=== PATIENT | female | born 2000 | race African-American/Black ===

== ENCOUNTER 2024-01-18 01:22 | Emergency (ER) | payer MEDICAID ==
[~2024-01-18] VITALS: Ht 170.2 cm; Wt 105.4 kg
[2024-01-18 01:29] VITALS: BP 144/90; PULSE 83; RESP 16; TEMP 98.5; O2SAT 97
[2024-01-18] MEDS ORDERED: HYDR4CRE35 PR (01:43)
== END 2024-01-18 01:55 | disposition home or self-care (01) ==
LOC: ER 01:22
DX: L25.9 Unspecified contact dermatitis, unspecified cause (principal)

== ENCOUNTER 2024-08-29 11:29 | Emergency (ER) | payer SELFPAY ==
[~2024-08-29] VITALS: Ht 170.2 cm; Wt 109.8 kg
[~2024-08-29 11:29] MED LIST: HYDR4CRE35 PR
--- NOTE | 2024-08-29 12:01 | ED.PDOC ---
ACCESS REPRESENTATIVE HPI Comments 23 y.o female presents to the ED for a chief complaint of vaginal bleeding that started this morning. Patient reports about 12 weeks twin gestation . Patient mentioned bleeding was heavy with no blood clots or pelvic cramping reported. Patient denies any recent trauma, back pain, nausea or vomiting. She denies medical history or allergies. Chief Complaint: Vaginal Bleed Time Seen by MD: 11:53 Reviewed Notes: Nurses Notes, Medications, Allergies Allergies: Coded Allergies: NO KNOWN ALLERGIES (Unverified , 08/29/24) Home Meds Active Scripts Hydrocortisone (Rectal) (Hydrocortisone) 1 % Cre, 1 % PA BID for 5 Days, #1 CRE Prov:WILLY FIGUEROA ALLY PAC 01/18/24 Information Source: Patient Mode of Arrival: Ambulatory Timing: Hours Severity: Moderate Vaginal Discharge: None Vaginal Lesions: None Bleeding Quality: Bright Red Vaginal Mass: None Onset Of Mass/Bleeding: Spontaneous Sexual Activity: Last Consensual [place]: Unknown Control: None History of: Current Blood Type: Unknown Associated Signs and Symptoms: Vaginal Bleeding Past Medical History PAST MEDICAL HISTORY: Denies Surgical History: Denies all surgeries POWERTRAIN DESIGN ENGINEER History: No Pertinent POWERTRAIN DESIGN ENGINEER History Family History Family History: Reviewed,noncontributory to illness Social History Smoker: Non-Smoker Alcohol: Denies ETOH Use Drugs: Denies Drug Use Lives In: Home Constitutional: denies: chills, diaphoresis, fatigue, fever, malaise, sweats, weakness, others EENTM: denies: blurred vision, double vision, ear bleeding, ear discharge, ear drainage, ear pain, ear ringing, eye pain, eye redness, hearing loss, mouth pain, mouth swelling, nasal discharge, nose bleeding, nose congestion, nose pain, photophobia, tearing, throat pain, throat swelling, voice changes, others Respiratory: denies: cough, hemoptysis, orthopnea, SOB at rest, shortness of breath, SOB with excertion, stridor, wheezing, others Cardiovascular: denies: chest pain, dizzy spells, diaphoresis, Dyspnea on exertion, edema, irregular heart beat, left arm pain, lightheadedness, palpitations, PND, syncope, others Gastrointestinal: denies: abdomen distended, abdominal pain, blood streaked bowels, constipated, diarrhea, dysphagia, difficulty swallowing, hematemesis, melena, nausea, poor appetite, poor fluid intake, rectal bleeding, rectal pain, vomiting, others Genitourinary: reports: abnormal vagina bleeding, ; denies: burning, dyspareunia, dysuria, flank pain, frequency, hematuria, incontinence, pain, vagina discharge, urgency, others Neurological: denies: dizziness, fainting, headache, left sided numbness, left sided weakness, numbness, paresthesia, pre-existing deficit, right sided numbness, right sided weakness, seizure, speech problems, tingling, tremors, weakness, others Musculoskeletal: denies: back pain, gout, joint pain, joint swelling, muscle pain, muscle stiffness, neck pain, others Integumetry: denies: bruises, change in color, change in hair/nails, dryness, laceration, lesions, lumps, rash, wounds, others Allergic/Immunocompromised: denies: Difficulty Healing, Frequent Infections, Hives, Itching, others Hematologic/Lymphatic: denies: anemia, blood clots, easy bleeding, easy bruising, swollen glands, others Endocrine: denies: excessive hunger, excessive sweating, excessive thirst, excessive urination, flushing, intolerance to cold, intolerance to heat, unexplained weight gain, unexplained weight loss, others Psychiatric: denies: anxiety, bipolar disorder, depression, hopeless, panic disorder, schizophrenia, sleepless, suicidal, others All Other Systems: Reviewed and Negative Physical Exam General Appearance: No Apparent Distress HEENT: Normal ENT Inspection, Pharynx Normal, TMs Normal Neck: Full Range of Motion, Non-Tender, Normal, Normal Inspection Respiratory: Chest Non-Tender, Lungs Clear, No Accessory Muscle Use, No Respiratory Distress, Normal Breath Sounds Cardiovascular: No Edema, No JVD, No Murmur, No Gallop, Normal Peripheral Pulses, Regular Rate/Rhythm Breast Exam: Deferred Gastrointestinal: Non Tender, No Pulsatile Mass, Normal Bowel Sounds, Soft, Other (Gravid uterus) Genitalia: Deferred Pelvic: Deferred Rectal: Deferred Extremities: No calf tenderness, Normal capillary refill, Normal inspection, Normal range of motion, Non-tender, No pedal edema Musculoskeletal : Apperance: Normal Neurologic: Alert, infrastructure consultant II-XII nml as Tested, No Motor Deficits, Normal Affect, Normal Mood, No Sensory Deficits Cerebellar Function: Normal Reflexes: Normal Skin: Dry, Normal Color, Warm Lymphatic: No Adenopathy Was a procedure done? Was a procedure done?: No Differential Diagnosis (POWERTRAIN DESIGN ENGINEER) Vaginal Bleeding: - Incomplete, - Inevitable, - Missed, - Threatened, Ectopic X-Ray, Labs, Meds, VS Vital Signs Date Time Temp Pulse Resp B/P (MAP) Pulse Ox O2 Delivery O2 Flow Rate FiO2 08/29/24 12:23 73 18 120/69 (86) 98 08/29/24 12:23 73 18 98 Room Air 08/29/24 11:50 98.7 76 16 125/72 (89) 100 98.7 Lab Test 08/29/24 12:32 08/29/24 12:01 Range/Units Urine Color Colorless Yellow Urine Clarity Clear Clear Urine pH 6.5 5.0-9.0 Urine Specific [place] 1.006 1.001-1.035 Urine Protein Negative Negative Urine Ketones Negative Negative Urine Blood 1+ H Negative /uL Urine Nitrite Negative Negative Urine Bilirubin Negative Negative Urine Urobilinogen Normal Negative mg/dL Urine Leukocyte Esterase Negative Negative /uL Urine RBC 1 0 - 4 /hpf Urine Microscopic WBC 5 0-5 /HPF Urine Squamous Epithelial Cells Few <5 /hpf Urine Bacteria Few H None Seen /hpf Urine Glucose Normal Normal mg/dL White Blood Count 7.8 4.4-10.8 10^3/uL Red Blood Count 5.28 H 4.0-5.20 10^6/uL Hemoglobin 12.0 L 12.2-16.2 g/dL Hematocrit 38.1 36.0-46.0 % Mean Corpuscular Volume 72.2 L 80.0-100.0 fL Mean Corpuscular Hemoglobin 22.7 L 28.0-32.0 pg Mean Corpuscular Hemoglobin Concent 31.5 L 32.0-36.0 g/dL Red Cell Distribution Width 16.5 H 11.8-14.3 % Platelet Count 299 140-450 10^3/uL Mean Platelet Volume 7.8 6.9-10.8 fL Neutrophils (%) (Auto) 67.0 37.0-80.0 % Lymphocytes (%) (Auto) 24.8 10.0-50.0 % Monocytes (%) (Auto) 7.0 0.0-12.0 % Eosinophils (%) (Auto) 0.8 0.0-7.0 % Basophils (%) (Auto) 0.4 0.0-2.0 % Neutrophils # (Auto) 5.2 1.6-8.6 10 ^3/uL Lymphocytes # (Auto) 1.9 0.4-5.4 10 ^3/uL Monocytes # (Auto) 0.5 0-1.3 10 ^3/uL Eosinophils # (Auto) 0.1 0-0.8 10 ^3/uL Basophils # (Auto) 0 0-0.2 10 ^3/uL Nucleated Red Blood Cells 0.0 % Beta HCG, Quantitative 351963.6 H 1.5-4.2 mIU/mL CLINICAL HISTORY: bleeding Transvaginal and transabdominal grayscale sonographic imaging of the uterus and ovaries was performed, assisted by color Doppler technique. Duplex Doppler ultrasound of both ovaries was also performed. IMPRESSION: Living twin intrauterine with estimated gestational age of 8 weeks 6 days, corresponding to an NINO of 04/09/2025. At this time, the patient will be discharged and will follow up with the primary care doctor The patient will return to the emergency department's condition worsens. The urine test is negative for any infection The CBC is within normal limits The quantitative hCG is 160207 The patient will follow up with their primary care doctor Images Reviewed?: Images reviewed and evaluated by me Time of 1ST Reevaluation: 12:00 Reevaluation 1ST: Unchanged Time of 2ND Reevaluation: 14:45 Reevaluation 2ND: Improved Patient Education/Counseling: Diagnosis, Treatment, Prognosis, Need For Follow Up Family Education/Counseling: Diagnosis, Treatment, Prognosis, Need For Follow Up Departure 1 Departure Time of Disposition: 14:45 Impression: Primary Impression: Threatened Additional Impression: Vaginal abnormality in Disposition: 01 HOME / SELF CARE / HOMELESS Condition: Fair Discharged With: Self Critical Care Note Critical Care Time?: No Stability Stability form required: No I personally scribed for COOPER BEE MD ([email or web address]) on 08/29/24 at 12:01. Electronically submitted by Giovanna Escalante ([facility]). I personally scribed for COOPER BEE MD ([email or web address]) on 08/29/24 at 14:41. Electronically submitted by Giovanna Escalante ([facility]). COOPER BEE MD Aug 29, 2024 12:01
[2024-08-29 12:19] LABS: Basophils # (auto) 0 10 ^3/uL (0-0.2); Basophils % (auto) 0.4 % (0.0-2.0); Eosinophils # (auto) 0.1 10 ^3/uL (0-0.8); Eosinophils % (auto) 0.8 % (0.0-7.0); Hematocrit 38.1 % (36.0-46.0); Lymphocytes # (auto) 1.9 10 ^3/uL (0.4-5.4); Lymphocytes % (auto) 24.8 % (10.0-50.0); Mean Corpuscular Hemoglobin 22.7 pg (28.0-32.0); Mean Corpuscular Hgb Conc. 31.5 g/dL (32.0-36.0); Mean Corpuscular Volume 72.2 fL (80.0-100.0); Monocytes # (auto) 0.5 10 ^3/uL (0-1.3); Neutrophils # (auto) 5.2 10 ^3/uL (1.6-8.6); Platelet Count (auto) 299 10^3/uL (140-450); Red Blood Cells 5.28 10^6/uL (4.0-5.20); Red Cell Distribution Width 16.5 % (11.8-14.3); White Blood Cell 7.8 10^3/uL (4.4-10.8)
[2024-08-29 12:54] LABS: Urine Bacteria FEW /hpf (None Seen); Urine Blood 1+ /uL (Negative); Urine Clarity Clear (Clear); Urine Color Colorless (Yellow); Urine Protein, UAD Negative (Negative); Urine Specific Gravity 1.006 (1.001-1.035); Urine Squamous Epithelial Cell FEW /hpf (<5); Urine Urobilinogen Normal (Negative); Urine WBC 5 /HPF (0-5); Urine pH 6.5 (5.0-9.0)
--- NOTE | 2024-08-29 14:38 | DVH ---
CLINICAL HISTORY: bleeding COMPARISON:None TECHNIQUE: Transvaginal and transabdominal grayscale sonographic imaging of the uterus and ovaries wa s performed, assisted by color Doppler technique. Duplex Doppler ultrasound of both ovaries was also performed. FINDINGS: The uterus measures 11.0 x 5.8 x 5.9 cm. There is a twin , appears to be dichorion ic diamniotic. Each gestational sac demonstrates a yolk sac and pole. [place]-rump length for twi n a is 2.16 cm, corresponding to an estimated gestational age of 8 weeks 6 days. heart rate fo r twin a measures 165 beats per minute. Twin b crown-rump length measures 2.17 cm, corresponding to a n estimated gestational age of 8 weeks 6 days. heart rate for twin b measures 168 beats per min marianela. Right ovary measures 3.7 x 2.7 x 4.9 cm. Arterial and venous blood flow demonstrated. Left ovary measures 3.0 x 1.8 x 1.7 cm. Arterial and venous blood flow demonstrated. IMPRESSION: Living twin intrauterine with estimated gestational age of 8 weeks 6 days, corresponding to an NINO of 04/09/2025.
[2024-08-29 14:54] VITALS: BP 119/69; PULSE 71; RESP 17; TEMP 98.9; O2SAT 98
== END 2024-08-29 14:59 | disposition home or self-care (01) ==
LOC: ER 11:29
DX: O20.0 Threatened abortion (principal); Z79.899 Other long term (current) drug therapy
CPT/HCPCS: 36415; 76801; 76817; 81001; 84702; 85025

== ENCOUNTER → 2024-09-03 | Outpatient (CLI) | payer BC ==
[2024-09-03 11:56] LABS: Basophils # (auto) 0 10 ^3/uL (0-0.2); Basophils % (auto) 0.5 % (0.0-2.0); Eosinophils # (auto) 0.1 10 ^3/uL (0-0.8); Eosinophils % (auto) 0.7 % (0.0-7.0); Hematocrit 39.6 % (36.0-46.0); Hemoglobin 12.7 g/dL (12.2-16.2); Lymphocytes # (auto) 1.8 10 ^3/uL (0.4-5.4); Lymphocytes % (auto) 21.2 % (10.0-50.0); Mean Corpuscular Hgb Conc. 32.1 g/dL (32.0-36.0); Mean Corpuscular Volume 71.9 fL (80.0-100.0); Monocytes # (auto) 0.6 10 ^3/uL (0-1.3); Neutrophils # (auto) 5.9 10 ^3/uL (1.6-8.6); Neutrophils % (auto) 70.6 % (37.0-80.0); Nucleated Red Blood Cells % 0.1 %; Platelet Count (auto) 305 10^3/uL (140-450); Red Blood Cells 5.51 10^6/uL (4.0-5.20); Red Cell Distribution Width 16.1 % (11.8-14.3); White Blood Cell 8.4 10^3/uL (4.4-10.8)
[2024-09-03 17:03] LABS: Amphetamine Screen, Urine Neg (NEGATIVE); Barbiturate Scree,Urine Neg (NEGATIVE); Benzodiazephine Screen, Urine Neg (NEGATIVE); Cannabinoid Screen, Urine Neg (NEGATIVE); Cocaine Screen, Urine Neg (NEGATIVE); Opiate Scree,Urine Neg (NEGATIVE); Phencyclidine Screen, Urine Neg (NEGATIVE)
== END | disposition home or self-care (01) ==
LOC: LAB 11:13
DX: O23.41 Unspecified infection of urinary tract in pregnancy, first trimester (principal); Z31.430 Encounter of female for testing for genetic disease carrier status for procreative management; N39.0 Urinary tract infection, site not specified; Z20.09 Contact with and (suspected) exposure to other intestinal infectious diseases; Z3A.12 12 weeks gestation of pregnancy
CPT/HCPCS: 36415; 80307; 83036; 84144; 84702; 85025; 86256; 86703; 86762; 86780; 86850; 86900; 86901; 87086; 87340

== ENCOUNTER 2025-01-11 11:05 | Observation (INO) | payer BC ==
[2025-01-11] MEDS ORDERED: PREN-96 PO (12:30)
--- NOTE | 2025-01-12 23:01 | DVHDS2 ---
Physician Discharge Progress N Final Diagnosis: ptl 29wks Operations or Procedures: Operations or Procedures nst reactive reviwed,sono Condition on Discharge: Good Disposition: Home Discharge Instructions: Diet: Regular Activity: No Restrictions, As Tolerated Medications: na Follow Up Care: Specialist: 3d Discharge Statement: "Patient was advised to return to the ER or call 911 if any headaches, dizziness, shortness of breath, chest pain, abdominal pain, bleeding, fevers, or worsening of medical condition. Patient was counseled about treatment plan, medications, possible side effects, patientverbalized understanding. All questions were answered to the best of my ability. This discharge took greater then 30 minutes in planning, reviewing documentat ion, counseling the patient, and discussing with other team members." Visit Coding OBGYN Date of Service: Jan 11, 2025 Billing Provider: BRIANA COBURN DO GRAD INTERN Common Visit Codes: [id number] INP/OBS CARE (HIGH) GRAD INTERN Procedure Codes: 79217-74- NON-STRESS TEST BRIANA COBURN DO Jan 12, 2025 23:01
== END 2025-01-11 12:42 | disposition home or self-care (01) ==
LOC: LDRP 11:05
PROVIDERS: ADMIT Obstetrics & Gynecology; ATTEND Obstetrics & Gynecology
DX: O60.03 Preterm labor without delivery, third trimester (principal); Z3A.29 29 weeks gestation of pregnancy; Z98.890 Other specified postprocedural states
CPT/HCPCS: 59025; 94760; G0378

== ENCOUNTER 2025-01-18 06:21 | Observation (INO) | payer BC ==
[~2025-01-18 06:21] MED LIST changes: +PREN-96 PO
--- NOTE | 2025-01-18 16:04 | DVHDS2 ---
Physician Discharge Progress N Final Diagnosis: testing for Twins Operations or Procedures: Operations or Procedures 24yo IUP@30.0wks VSS NST reactive per RN FKC/PTL precautions reviewed Dr. Cleveland consulted, agrees with POC. Condition on Discharge: Stable Disposition: Home Discharge Instructions: Diet: Regular Activity: See Comment Activity comment: light duty Medications: see med list Follow Up Care: Specialist: f/i in 1wk Discharge Statement: "Patient was advised to return to the ER or call 911 if any headaches, dizziness, shortness of breath, chest pain, abdominal pain, bleeding, fevers, or worsening of medical condition. Patient was counseled about treatment plan, medications, possible side effects, patientverbalized understanding. All questions were answered to the best of my ability. This discharge took greater then 30 minutes in planning, reviewing documentation, counseling the patient, and discussing with other team members." Visit Coding OBGYN Date of Service: Jan 18, 2025 Billing Provider: GAMAL ALLEN CNM PROCESS EQUIPMENT OPERATOR Common Visit Codes: [id number] OBS CARE (HIGH) PROCESS EQUIPMENT OPERATOR Procedure Codes: 44796-40- NON-STRESS TEST GAMAL ALLEN CNM Jan 18, 2025 16:04
== END 2025-01-18 10:49 | disposition home or self-care (01) ==
LOC: LDRP 09:39 → UNDOADMOB 09:39 → LDRP 10:06 → UNDODISOB 10:49
PROVIDERS: ADMIT Obstetrics & Gynecology; ATTEND Obstetrics & Gynecology
DX: O30.003 Twin pregnancy, unspecified number of placenta and unspecified number of amniotic sacs, third trimester (principal); Z3A.30 30 weeks gestation of pregnancy; Z98.890 Other specified postprocedural states
CPT/HCPCS: 59025; 81002; G0378

== ENCOUNTER 2025-01-25 09:23 | Observation (INO) | payer BC ==
--- NOTE | 2025-01-25 14:07 | DVHDS2 ---
Physician Discharge Progress N Final Diagnosis: testing for twins Operations or Procedures: Operations or Procedures S: 24y/o IUP@ 31+ weeks GA presents for testing for twins PNC with Dr. Cleveland Denies LOF, VB, UC's, vision changes, RUQ pain, FENG O: VSS: see CPN NST reactive A: 24y/o IUP@ 31+weeks GA Twin P: D/C home consulted Dr. Cleveland, agrees with POC Follow up in one week Condition on Discharge: Stable Disposition: Home Discharge Instructions: Diet: Regular Activity: Light activity Medications: See med list Follow Up Care: Specialist: Follow up in one week Discharge Statement: "Patient was advised to return to the ER or call 911 if any headaches, dizziness, shortness of breath, chest pain, abdominal pain, bleeding, fevers, or worsening of medical condition. Patient was counseled about treatment plan, medications, possible side effects, patientverbalized understanding. All questions were answered to the best of my ability. This discharge took greater then 30 minutes in planning, reviewing documentation, counseling the patient, and discussing with other team members." Visit Coding OBGYN Date of Service: Jan 25, 2025 Billing Provider: GAMAL ALLEN CNM RESEARCH AND DEVELOPMENT SCIENTIST Common Visit Codes: [id number] OBS CARE (HIGH) RESEARCH AND DEVELOPMENT SCIENTIST Procedure Codes: 48944-91- NON-STRESS TEST GAMAL ALLEN CNM Jan 25, 2025 14:07
== END 2025-01-25 11:24 | disposition home or self-care (01) ==
LOC: UNDOADMOB 09:23 → LDRP 09:23 → UNDODISOB 11:24
PROVIDERS: ADMIT Obstetrics & Gynecology; ATTEND Obstetrics & Gynecology
DX: O30.003 Twin pregnancy, unspecified number of placenta and unspecified number of amniotic sacs, third trimester (principal); Z3A.31 31 weeks gestation of pregnancy; Z98.890 Other specified postprocedural states
CPT/HCPCS: 59025; 81002; 94760; G0378

== ENCOUNTER 2025-02-01 02:34 | Observation (INO) | payer BC ==
--- NOTE | 2025-02-01 13:30 | DVHDS2 ---
Physician Discharge Progress N Final Diagnosis: testing for twins Operations or Procedures: Operations or Procedures 24yo IUP@32.0wks, denies UTI s/sx VSS NST reactive and BPP 8/8 for twin A and B UA and urine culture ordered. FKC/PTL precautions reviewed. Dr. [place] consulted, agrees with POC. Condition on Discharge: Stable Disposition: Home Discharge Instructions: Diet: Regular Activity: No Restrictions, As Tolerated Medications: see med list Follow Up Care: Specialist: f/u in 1wk Discharge Statement: "Patient was advised to return to the ER or call 911 if any headaches, dizziness, shortness of breath, chest pain, abdominal pain, bleeding, fevers, or worsening of medical condition. Patient was counseled about treatment plan, medications, possible side effects, patientverbalized understanding. All questions were answered to the best of my ability. This discharge took greater then 30 minutes in planning, reviewing documentation, counseling the patient, and discussing with other team members." Visit Coding OBGYN Date of Service: Feb 01, 2025 Billing Provider: GAMAL ALLEN CNM INTERRELATED SPECIAL EDUCATION TEACHER Common Visit Codes: [id number] OBS CARE (HIGH) INTERRELATED SPECIAL EDUCATION TEACHER Procedure Codes: 55275-37- NON-STRESS TEST GAMAL ALLEN CNM Feb 01, 2025 13:30
--- NOTE | 2025-02-01 13:50 | DVH ---
BIOPHYSICAL PROFILE HISTORY: twins Comparison Study: US OB TRANS VAGINAL US on DOS: 08/29/24, US OB ULTRASOUND COMP LESS 14WKS on DOS: TECHNIQUE: Multiple real-time grayscale sonographic images through the gravid uterus of the fetus wi th duplex Doppler color flow and M-mode spectral analysis FINDINGS: Twin A: BIOPHYSICAL PROFILE: breathing score: 2 movement score: 2 tone score: 2 Quantitative SELWYN score: 2 (MVP: 5.2 Cm.) Total score: 8 The cervix is not visualized Single live fetus in cephalic presentation. heart rate 148 beats per minute. Grade 1, anterior placenta without previa or abruption Twin B: Twin A: BIOPHYSICAL PROFILE: breathing score: 2 movement score: 2 tone score: 2 Quantitative SELWYN score: 2 (MVP: 5.7 Cm.) Total score: 8 The cervix is not visualized Single live fetus in cephalic presentation. heart rate 138 beats per minute. Grade 1, anterior placenta without previa or abruption IMPRESSION: Biophysical profile score: 8/8 for both twin a and twin B
[2025-02-01 14:22] LABS: Urine Protein, UAD Negative (Negative)
== END 2025-02-01 13:50 | disposition home or self-care (01) ==
LOC: LDRP 10:55
PROVIDERS: ADMIT Obstetrics & Gynecology; ATTEND Obstetrics & Gynecology
DX: O09.33 Supervision of pregnancy with insufficient antenatal care, third trimester (principal); O30.003 Twin pregnancy, unspecified number of placenta and unspecified number of amniotic sacs, third trimester; Z3A.32 32 weeks gestation of pregnancy; Z98.890 Other specified postprocedural states; Z79.899 Other long term (current) drug therapy
CPT/HCPCS: 76818; 81001; 81002; 87086; 94760; G0378; 59025; 76819

== ENCOUNTER 2025-02-03 11:20 | Observation (INO) | payer BC ==
--- NOTE | 2025-02-03 13:23 | DVH ---
BIOPHYSICAL PROFILE HISTORY: Twins with contractions TECHNIQUE: Multiple transabdominal real-time grayscale sonographic images through the gravid uterus of the fetus with duplex Doppler color flow and M-mode spectral analysis FINDINGS: TWIN A: BIOPHYSICAL PROFILE: breathing score: 2 movement score: 2 tone score: 2 Quantitative SELWYN score: 2 (MVP: 5.3 Cm.) Total score: 8 The cervix not well visualized. Single live fetus in cephalic presentation. heart rate 157 beats per minute. Anterior placenta without previa or abruption TWIN B: TWIN A: BIOPHYSICAL PROFILE: breathing score: 2 movement score: 2 tone score: 2 Quantitative SELWYN score: 2 (MVP: 7 Cm.) Total score: 8 The cervix not well visualized. Single live fetus in cephalic presentation. heart rate 148 beats per minute. Anterior placenta without previa or abruption IMPRESSION: Biophysical profile score TWIN A AND B : 8
--- NOTE | 2025-02-04 13:12 | DVHDS2 ---
Physician Discharge Progress N Final Diagnosis: twins [facility] wks [facility] Operations or Procedures: Operations or Procedures nst reactive reviwed,sono Condition on Discharge: Good Disposition: Home Discharge Instructions: Diet: Regular Activity: Light activity Follow Up/Referral: [facility]/BPP on February 10 at 12:00 pm Medications: na Follow Up Care: Specialist: 1w Discharge Statement: "Patient was advised to return to the ER or call 911 if any headaches, dizziness, shortness of breath, chest pain, abdominal pain, bleeding, fevers, or worsening of medical condition. Patient was counseled about treatment plan, medications, possible side effects, patientverbalized understanding. All questions were answered to the best of my ability. This discharge took greater then 30 minutes in planning, reviewing documentation, counseling the patient, and discussing with other team members." Visit Coding OBGYN Date of Service: Feb 03, 2025 Billing Provider: BRIANA COBURN DO HUNTING GUIDE Common Visit Codes: [id number] OBS CARE (HIGH) HUNTING GUIDE Procedure Codes: 02375-33- NON-STRESS TEST BRIANA COBURN DO Feb 04, 2025 13:12
== END 2025-02-03 13:50 | disposition home or self-care (01) ==
LOC: LDRP 11:20
PROVIDERS: ADMIT Obstetrics & Gynecology; ATTEND Obstetrics & Gynecology
DX: O30.003 Twin pregnancy, unspecified number of placenta and unspecified number of amniotic sacs, third trimester (principal); Z3A.32 32 weeks gestation of pregnancy; Z98.890 Other specified postprocedural states
CPT/HCPCS: 76818; 81002; 94760; G0378; 59025; 76819

== ENCOUNTER 2025-02-08 06:48 | Observation (INO) | payer BC ==
[2025-02-08 12:12] LABS: Hematocrit 31.3 % (36.0-46.0); Hemoglobin 9.7 g/dL (12.2-16.2); Mean Corpuscular Hemoglobin 22.1 pg (28.0-32.0); Mean Corpuscular Volume 71.4 fL (80.0-100.0); Nucleated Red Blood Cells % 0.2 %
[2025-02-08 12:21] LABS: INR 0.94 (0.9-1.15); Partial Thromboplastin Time 26.7 SEC (24.5-34.5); Prothrombin Time 10.0 sec (9.3-11.8)
[2025-02-08 12:24] LABS: Albumin 3.8 g/dL (3.2-4.8); Alkaline Phosphatase 114 U/L (46-116); Anion Gap 10 (5-15); Bilirubin, Total 0.3 mg/dL (0.2-1.0); Calcium 9.0 mg/dL (8.7-10.4); Carbon Dioxide 23 mmol/L (20-31); Chloride 104 mmol/L (98-107); Potassium 4.0 mmol/L (3.5-5.1); Sodium 137 mmol/L (136-145); Total Protein 7.0 g/dL (5.7-8.2); Uric Acid 5.0 mg/dL (3.1-7.8)
[2025-02-08 12:25] LABS: Alanine Aminotransferase < 9 U/L (7-40); BUN/Creatinine Ratio 7.1 (10.0-20.0); Blood Urea Nitrogen < 5 mg/dL (9-23); Glucose 72 mg/dL (74-106)
[2025-02-08 12:39] LABS: Urine Protein, UAD Negative (Negative)
[2025-02-08 12:45] LABS: Protein, Urine 9.8 mg/dL (1-14)
--- NOTE | 2025-02-08 12:53 | DVH ---
BIOPHYSICAL PROFILE HISTORY: Twins/PIH TECHNIQUE: Multiple transabdominal real-time grayscale sonographic images through the gravid uterus of the fetus with duplex Doppler color flow and M-mode spectral analysis FINDINGS: TWIN A: BIOPHYSICAL PROFILE: breathing score: 2 movement score: 2 tone score: 2 Quantitative SELWYN score: 2 (MVP: 6.0 Cm.) Total score: 8 The cervix not well visualized. TWIN A fetus in cephalic presentation. heart rate 149 beats per minute. Anterior placenta without previa or abruption TWIN B: BIOPHYSICAL PROFILE: breathing score: 2 movement score: 2 tone score: 2 Quantitative SELWYN score: 2 (MVP: 5.2 Cm.) Total score: 8 The cervix not well visualized. TWIN A fetus in cephalic presentation. heart rate 139 beats per minute. Anterior placenta without previa or abruption IMPRESSION: Biophysical profile score: 8/8 for TWIN A AND TWINB
--- NOTE | 2025-02-08 13:06 | DVHDS2 ---
Physician Discharge Progress N Final Diagnosis: twins 33wks pih check-pih ruled out Operations or Procedures: Operations or Procedures nst reactive reviwed,sono,labs Condition on Discharge: Good Disposition: Home Discharge Instructions: Diet: Regular Activity: No Restrictions, As Tolerated Medications: na Follow Up Care: Specialist: 1w Discharge Statement: "Patient was advised to return to the ER or call 911 if any headaches, dizziness, shortness of breath, chest pain, abdominal pain, bleeding, fevers, or worsening of medical condition. Patient was counseled about treatment plan, medications, possible side effects, patientverbalized understanding. All questions were answered to the best of my ability. This discharge took greater then 30 minutes in planning, reviewing documentation, counseling the patient, and discussing with other team members." Visit Coding OBGYN Date of Service: Feb 08, 2025 Billing Provider: BRIANA COBURN DO MATERIAL ANALYST Common Visit Codes: [id number] OBS CARE (HIGH) MATERIAL ANALYST Procedure Codes: 03194-07- NON-STRESS TEST BRIANA COBURN DO Feb 08, 2025 13:06
== END 2025-02-08 13:15 | disposition home or self-care (01) ==
LOC: LDRP 10:52 → UNDOADMOB 10:52 → LDRP 11:08
PROVIDERS: ADMIT Obstetrics & Gynecology; ATTEND Obstetrics & Gynecology
DX: O30.003 Twin pregnancy, unspecified number of placenta and unspecified number of amniotic sacs, third trimester (principal); Z3A.33 33 weeks gestation of pregnancy; Z98.890 Other specified postprocedural states; Z86.2 Personal history of diseases of the blood and blood-forming organs and certain disorders involving the immune mechanism
CPT/HCPCS: 36415; 76818; 80053; 81001; 81002; 82570; 84156; 84550; 85025; 85610; 85730; 94760; G0378; 59025; 76819

== ENCOUNTER 2025-02-15 11:33 | Observation (INO) | payer BC ==
--- NOTE | 2025-02-15 13:43 | DVH ---
BIOPHYSICAL PROFILE HISTORY: Twins Comparison Study: US BIOPHYSICAL PROFILE on DOS: 02/08/25, US BIOPHYSICAL PROFILE on DOS: 02/03/25, US BIOPHYSICAL PROFILE on DOS: 02/01/25, US OB ULTRASOUND COMP LESS 14WKS on DOS: 08/29/24 TECHNIQUE: Multiple real-time grayscale sonographic images through the gravid uterus of the fetus wi th duplex Doppler color flow and M-mode spectral analysis FINDINGS: BIOPHYSICAL PROFILE: TWIN A: breathing score: 2 movement score: 2 tone score: 2 Quantitative SELWYN score: 2 (SELWYN MVP: 6.1 Cm.) Total score: 8 The cervix is not visualized Single live fetus in cephalic presentation. heart rate 146 beats per minute. Grade 2, anterior placenta without previa or abruption TWIN B: breathing score: 2 movement score: 2 tone score: 2 Quantitative SELWYN score: 2 (SELWYN MVP: 4.9 Cm.) Total score: 8 The cervix is not visualized Single live fetus in cephalic presentation. heart rate 134 beats per minute. Grade 2, anterior placenta without previa or abruption IMPRESSION: Biophysical profile score: 8/8 from Twin A and Twin B
--- NOTE | 2025-02-15 17:49 | DVHDS2 ---
Physician Discharge Progress N Final Diagnosis: testing for twins Operations or Procedures: Operations or Procedures 24yo IUP@34.6wks VSS Twin A: NST reactive per RN Twin B: NST reactive per RN FKC/PTL/PreE precautions reviewed Dr. [place] consulted, agrees with POC. Other Interventions Other Interventions [place] [address] Ph: [phone] DIAGNOSTIC IMAGING Diagnostic Imaging Report : [id number] Signed PATIENT: GIANNI SALGADO ACCT: [id number] UNIT: [id number] : 2000 LOC: [facility] ROOM / BED: TRIAGE2 / A AGE / SEX: 24 / F ADM STATUS: ADM IN SERVICE 37 ORDERING PHYSICIAN: GAMAL ALLEN CNM PROCEDURE(s): BPP - BIOPHYSICAL PROFILE REASON: Twins ORDER NUMBER(s): [id number], ACCESSION NUMBER(s): [id number] BIOPHYSICAL PROFILE HISTORY: Twins Comparison Study: US BIOPHYSICAL PROFILE on DOS: 02/08/25, US BIOPHYSICAL PROFILE on DOS: 02/03/25, US BIOPHYSICAL PROFILE on DOS: 02/01/25, US OB ULTRASOUND COMP LESS 14WKS on DOS: 08/29/24 TECHNIQUE: Multiple real-time grayscale sonographic images through the gravid uterus of the fetus with duplex Doppler color flow and M-mode spectral analysis FINDINGS: BIOPHYSICAL PROFILE: TWIN A: breathing score: 2 movement score: 2 tone score: 2 Quantitative SELWYN score: 2 (SELWYN MVP: 6.1 Cm.) Total score: 8 The cervix is not visualized Single live fetus in cephalic presentation. heart rate 146 beats per minute. Grade 2, anterior placenta without previa or abruption TWIN B: breathing score: 2 movement score: 2 tone score: 2 Quantitative SELWYN score: 2 (SELWYN MVP: 4.9 Cm.) Total score: 8 The cervix is not visualized Single live fetus in cephalic presentation. heart rate 134 beats per minute. Grade 2, anterior placenta without previa or abruption IMPRESSION: Biophysical profile score: 8/8 from Twin A and Twin B ATED BY: KWABENA FOLEY MD DICTATED DATE/TIME: 02/15/251340 SIGNED BY: KWABENA FOLEY MD SIGNED DATE/TIME: 02/15/251340 CC: Condition on Discharge: Stable Disposition: Home Discharge Instructions: Diet: Regular Activity: No Restrictions, As Tolerated Follow Up/Referral: Follow up Friday at 11:00 am for NST[facility]BPP [facility] Medications: see med list Follow Up Care: Specialist: f/u in 1wk Discharge Statement: "Patient was advised to return to the ER or call 911 if any headaches, dizziness, shortness of breath, chest pain, abdominal pain, bleeding, fevers, or worsening of medical condition. Patient was counseled about treatment plan, medications, possible side effects, patientverbalized understanding. All questions were answered to the best of my ability. This discharge took greater then 30 minutes in planning, reviewing documentation, counseling the patient, and discussing with other team members." Visit Coding OBGYN Date of Service: Feb 15, 2025 Billing Provider: GAMAL ALLEN CNM DIRECTOR OF ELEMENTARY EDUCATION Common Visit Codes: [id number] OBS CARE (HIGH) DIRECTOR OF ELEMENTARY EDUCATION Procedure Codes: 23129-61- NON-STRESS TEST GAMAL ALLEN CNM Feb 15, 2025 17:49
== END 2025-02-15 13:40 | disposition home or self-care (01) ==
LOC: LDRP 11:33
PROVIDERS: ADMIT Obstetrics & Gynecology; ATTEND Obstetrics & Gynecology
DX: O30.003 Twin pregnancy, unspecified number of placenta and unspecified number of amniotic sacs, third trimester (principal); Z3A.34 34 weeks gestation of pregnancy; Z98.890 Other specified postprocedural states
CPT/HCPCS: 76818; 81002; 94760; G0378; 59025; 76819

== ENCOUNTER 2025-03-01 11:05 | Observation (INO) | payer BC ==
[~2025-03-01] VITALS: Ht 170.2 cm; Wt 122.5 kg
[2025-03-01 13:05] LABS: Urine Protein, UAD TRACE (Negative)
[2025-03-01] MEDS: BETAMETHASONE ACET (30mg/5ml) 5ml Vial 6mg/ml IM ONE (14:42)
--- NOTE | 2025-03-01 14:56 | DVH ---
INDICATION: R/O Kidney infection TECHNIQUE: Multiple real-time sonographic images of the kidneys and bladder were obtained. COMPARISON: None FINDINGS: The right kidney measures 11 cm in length, which is normal in size. There is normal echogenicity of the right kidney. Mild hydronephrosis. The left kidney measures 12 cm in length, which is normal in size. There is normal echogenicity of the left kidney. Mild hydronephrosis. No large intraluminal masses are seen in the bladder. Prior to voiding the bladder volume measures volume 45 cc. Following voiding, the bladder volume residual measures 0 cc. IMPRESSION: Mild bilateral hydronephrosis which can be seen in the setting . L CERDA
--- NOTE | 2025-03-01 14:58 | DVH ---
BIOPHYSICAL PROFILE HISTORY: Twins TECHNIQUE: Multiple transabdominal real-time grayscale sonographic images through the gravid uterus of the fetus with duplex Doppler color flow and M-mode spectral analysis FINDINGS: TWIN A: BIOPHYSICAL PROFILE: breathing score: 2 movement score: 2 tone score: 2 Quantitative SELWYN score: 2 (MVP: 5.2 Cm.) Total score: 8 The cervix not well visualized. Single live fetus in phalanx presentation. heart rate 148 beats per minute. Grade 2 Anterior placenta without previa or abruption TWIN B: BIOPHYSICAL PROFILE: breathing score: 2 movement score: 2 tone score: 2 Quantitative SELWYN score: 2 (MVP 6.2 Cm.) Total score: 8 The cervix [ not well visualized. ] Single live fetus in cephalic presentation. heart rate 144 beats per minute. Grade 2 anterior placenta without previa or abruption IMPRESSION: TWIN A: Biophysical profile score: 8 TWIN B: Biophysical profile score: 8 L CERDA
--- NOTE | 2025-03-01 17:36 | DVHDS2 ---
Physician Discharge Progress N Final Diagnosis: testing for twins/GDM, A1 Operations or Procedures: Operations or Procedures 24yo IUP@36.0wks, pt showed up for testing today. Pt is non- complaint and has no showed to multiple /GDM education/ appts. Pt reports coming from Dr. Arana's office were imaging was suboptimal due to severe back pain and inability to move side to side. Pt denies UTI s/sx today, did have GBS in urine 1 month ago that was treated. Denies UCs/LOF/VB/FENG/vision changes/RUQ pain. Endorses +FM for twin A and B. No CVA tenderness bilaterally per RN VSS, normotensive, afebrile, see CPN NST reactive for twin A and B urine C+S ordered First dose of Betamethasone IM given, Dr. Cleveland ordered per Dr. Arana's recommendation, f/u in 1 day for second dose FKC/PTL/PreE precautions reviewed Dr. Cleveland consulted, agrees with POC. Laboratory Tests Test 03/01/25 11:10 03/01/25 13:53 03/01/25 13:55 Range/Units Urine Color Light-yellow Yellow Urine Clarity Clear Clear Urine pH 6.5 5.0-9.0 Urine Specific [place] 1.014 1.001-1.035 Urine Protein Trace H Negative Urine Ketones 3+ H Negative Urine Blood Negative Negative /uL Urine Nitrite Negative Negative Urine Bilirubin Negative Negative Urine Urobilinogen Normal Negative mg/dL Urine Leukocyte Esterase 3+ Negative /uL Urine RBC 2 0 - 4 /hpf Urine Microscopic WBC 17 H 0-5 /HPF Urine Squamous Epithelial Cells Few <5 /hpf Urine Bacteria Few H None Seen /hpf Urine Glucose Normal Normal mg/dL Hemoglobin A1c 5.4 <5.7 % A1C POC Glucose 73 70-106 mg/dl Other Interventions Other Interventions [facility] [id number] [place] [address] Ph: [phone] DIAGNOSTIC IMAGING Diagnostic Imaging Report : [id number] Signed PATIENT: GIANNI SALGADO ACCT: [id number] UNIT: [id number] : 2000 LOC: [facility] ROOM / BED: [facility] / A AGE / SEX: 24 / F ADM STATUS: ADM IN SERVICE 1115 ORDERING PHYSICIAN: GAMAL ALLEN CNM PROCEDURE(s): BPP - BIOPHYSICAL PROFILE REASON: Twins ORDER NUMBER(s): [id number], ACCESSION NUMBER(s): [id number] BIOPHYSICAL PROFILE HISTORY: Twins TECHNIQUE: Multiple transabdominal real-time grayscale sonographic images through the gravid uterus of the fetus with duplex Doppler color flow and M-mode spectral analysis FINDINGS: TWIN A: BIOPHYSICAL PROFILE: breathing score: 2 movement score: 2 tone score: 2 Quantitative SELWYN score: 2 (MVP: 5.2 Cm.) Total score: 8 The cervix not well visualized. Single live fetus in phalanx presentation. heart rate 148 beats per minute. Grade 2 Anterior placenta without previa or abruption TWIN B: BIOPHYSICAL PROFILE: breathing score: 2 movement score: 2 tone score: 2 Quantitative SELWYN score: 2 (MVP 6.2 Cm.) Total score: 8 The cervix [ not well visualized. ] Single live fetus in cephalic presentation. heart rate 144 beats per m inute. Grade 2 anterior placenta without previa or abruption IMPRESSION: TWIN A: Biophysical profile score: 8 TWIN B: Biophysical profile score: 8 CRANE DRIVER DICTATED BY: ASHLEY PEREZ MD DICTATED DATE/TIME: 03/01/25 4446 SIGNED BY: ASHLEY PEREZ MD SIGNED DATE/TIME: 03/01/25 8736 CC: Consultations: Consultations [place] [address] Ph: [phone] DIAGNOSTIC IMAGING Diagnostic Imaging Report : [id number] Signed PATIENT: GIANNI SALGADO ACCT: [id number] UNIT: [id number] : 2000 LOC: [facility] ROOM / BED: [address] A AGE / SEX: 24 / F ADM STATUS: ADM IN SERVICE 1206 ORDERING PHYSICIAN: GAMAL ALLEN CNM PROCEDURE(s): KIDUS - KIDNEY REASON: R/O Kidney infection ORDER NUMBER(s): [id number], ACCESSION NUMBER(s): [id number] INDICATION: R/O Kidney infection TECHNIQUE: Multiple real-time sonographic images of the kidneys and bladder were obtained. COMPARISON: None FINDINGS: The right kidney measures 11 cm in length, which is normal in size. There is normal echogenicity of the right kidney. Mild hydronephrosis. The left kidney measures 12 cm in length, which is normal in size. There is normal echogenicity of the left kidney. Mild hydronephrosis. No large intraluminal masses are seen in the bladder. Prior to voiding the bladder volume measures volume 45 cc. Following voiding, the bladder volume residual measures 0 cc. IMPRESSION: Mild bilateral hydronephrosis which can be seen in the setting . CRANE DRIVER DICTATED BY: ASHLEY PEREZ MD DICTATED DATE/TIME: 03/01/25 0404 SIGNED BY: ASHLEY PEREZ MD SIGNED DATE/TIME: 03/01/25 1456 CC: Condition on Discharge: Stable Disposition: Home Discharge Instructions: Diet: Consistent carbohydrate Activity: No Restrictions, As Tolerated Medications: see med list Follow Up Care: Specialist: f/u in 1 day for second dose of betamethasone Discharge Statement: "Patient was advised to return to the ER or call 911 if any headaches, dizziness, shortness of breath, chest pain, abdominal pain, bleeding, fevers, or worsening of medical condition. Patient was counseled about treatment plan, medications, possible side effects, patientverbalized understanding. All questions were answered to the best of my ability. This discharge took greater then 30 minutes in planning, reviewing documentation, counseling the patient, and discussing with other team members." Visit Coding OBGYN Date of Service: Mar 01, 2025 Billing Provider: GAMAL ALLEN CNM INTERNATIONAL MARKETING MANAGER Common Visit Codes: 57693-IAJWKXB OBS CARE (HIGH) INTERNATIONAL MARKETING MANAGER Procedure Codes: 46162-81- NON-STRESS TEST GAMAL ALLEN CNM Mar 01, 2025 17:36
== END 2025-03-01 15:15 | disposition home or self-care (01) ==
LOC: LDRP 11:05
PROVIDERS: ADMIT Obstetrics & Gynecology; ATTEND Obstetrics & Gynecology
DX: O24.419 Gestational diabetes mellitus in pregnancy, unspecified control (principal); Z3A.36 36 weeks gestation of pregnancy; Z98.890 Other specified postprocedural states; Z79.899 Other long term (current) drug therapy
CPT/HCPCS: 36415; 76775; 76818; 81001; 81002; 82948; 82962; 83036; 87086; 94760; 96372; G0378; J0702; 59025; 76819; 87088; 87186

== ENCOUNTER 2025-03-02 08:57 | Observation (INO) | payer BC ==
[~2025-03-02] VITALS: Ht 200.7 cm; Wt 108.9 kg
[2025-03-02] MEDS: BETAMETHASONE ACET (30mg/5ml) 5ml Vial 6mg/ml IM ONE (16:28)
--- NOTE | 2025-03-04 12:48 | DVHDS2 ---
Physician Discharge Progress N Final Diagnosis: twins 36wks Operations or Procedures: Operations or Procedures nst reactive reviwed,sono Condition on Discharge: Good Disposition: Home Discharge Instructions: Diet: Regular, Consistent carbohydrate Activity: No Restrictions, As Tolerated Medications: na Follow Up Care: Specialist: 2d Discharge Statement: "Patient was advised to return to the ER or call 911 if any headaches, dizziness, shortness of breath, chest pain, abdominal pain, bleeding, fevers, or worsening of medical condition. Patient was counseled about treatment plan, medications, possible side effects, patientverbalized understanding. All questions were answered to the best of my ability. This discharge took greater then 30 minutes in planning, reviewing documentation, counseling the patient, and discussing with other team members." Visit Coding OBGYN Date of Service: Mar 02, 2025 Billing Provider: BRIANA COBURN DO COMPREHENSIVE OPHTHALMOLOGIST Common Visit Codes: 39262-YKGNVQL INP/OBS CARE (HIGH) COMPREHENSIVE OPHTHALMOLOGIST Procedure Codes: 14815-86- NON-STRESS TEST BRIANA COBURN DO Mar 04, 2025 12:48
== END 2025-03-02 17:07 | disposition home or self-care (01) ==
LOC: LDRP 15:38 → UNDOADMOB 15:38 → LDRP 15:44
PROVIDERS: ADMIT Obstetrics & Gynecology; ATTEND Obstetrics & Gynecology
DX: O24.419 Gestational diabetes mellitus in pregnancy, unspecified control (principal); Z3A.36 36 weeks gestation of pregnancy; Z98.890 Other specified postprocedural states
CPT/HCPCS: 59025; 81002; 82948; 82962; 94760; 96372; G0378; J0702

== ENCOUNTER 2025-03-06 10:44 | Observation (INO) | payer BC ==
--- NOTE | 2025-03-06 13:58 | DVH ---
CLINICAL HISTORY: Twin . Gestational diabetes. COMPARISON: US BIOPHYSICAL PROFILE on DOS: 03/01/25, US BIOPHYSICAL PROFILE on DOS: 02/15/25, US BIOP HYSICAL PROFILE on DOS: 02/08/25 TECHNIQUE: biophysical profile was performed. Transabdominal sonographic images of the fetus we re obtained. FINDINGS: Twin A: The fetus is in cephalic position. heart rate measures 155 BPM. Amniotic fluid MVP measures 4.5 cm. The placenta is anterior in position without evidence of previa or abruption. Grade 2 placenta. BPP profile is an overall score of 8/8, with 2/2 points for breathing, with at least one episode of breathing over a 30 second duration during a 30 minute observation, 2/2 points for m ovements, with 3 or more discrete body or limb movements, 2/2 points for tone, with one or more episodes of extremity extension with return to flexion, or opening and closing of hand, and 2/ 2 points for amniotic fluid, with at least 1 pocket of amniotic fluid that measures 2 cm in 2 perpend icular planes. Twin B: The fetus is in cephalic position. heart rate measures 134 BPM. Amniotic fluid MVP measures 4.1 cm. The placenta is anterior in position without evidence of previa or abruption. Grade 2 placenta. BPP profile is an overall score of 8/8, with 2/2 points for breathing, with at least one episode of breathing over a 30 second duration during a 30 minute observation, 2/2 points for m ovements, with 3 or more discrete body or limb movements, 2/2 points for tone, with one or more episodes of extremity extension with return to flexion, or opening and closing of hand, and 2/ 2 points for amniotic fluid, with at least 1 pocket of amniotic fluid that measures 2 cm in 2 perpend icular planes. IMPRESSION: BPP score of 8/8 for both twins.
--- NOTE | 2025-03-06 15:56 | DVHDS2 ---
Physician Discharge Progress N Final Diagnosis: Twin gestation Secondary Diagnosis: GDMA1 Operations or Procedures: Operations or Procedures NST/BPP SELWYN SONO reviewed PATIENT: GIANNI SALGADO ACCT: [id number] UNIT: [id number] : 2000 LOC: [facility] ROOM / BED: TRIAGE3 / A AGE / SEX: 24 / F ADM STATUS: ADM IN SERVICE 1117 ORDERING PHYSICIAN: LENKA EUCEDA DO PROCEDURE(s): BPP - BIOPHYSICAL PROFILE REASON: twins, GDMA1 ORDER NUMBER(s): [id number], ACCESSION NUMBER(s): [id number] CLINICAL HISTORY: Twin . Gestational diabetes. COMPARISON: US BIOPHYSICAL PROFILE on DOS: 03/01/25, US BIOPHYSICAL PROFILE on DOS: 02/15/25, US BIOPHYSICAL PROFILE on DOS: 02/08/25 TECHNIQUE: biophysical profile was performed. Transabdominal sonographic images of the fetus were obtained. FINDINGS: Twin A: The fetus is in cephalic position. heart rate measures 155 BPM. Amniotic fluid MVP measures 4.5 cm. The placenta is anterior in position without evidence of previa or abruption. Grade 2 placenta. BPP profile is an overall score of 8/8, with 2/2 points for breathing, with at least one episode of breathing over a 30 second duration during a 30 minute observation, 2/2 points for movements, with 3 or more discrete body or limb movements, 2/2 points for tone, with one or more episodes of extremity extension with return to flexion, or opening and closing of hand, and 2/2 points for amniotic fluid, with at least 1 pocket of amniotic fluid that measures 2 cm in 2 perpendicular planes. Twin B: The fetus is in cephalic position. heart rate measures 134 BPM. Amniotic fluid MVP measures 4.1 cm. The placenta is anterior in position without evidence of previa or abruption. Grade 2 placenta. BPP profile is an overall score of 8/8, with 2/2 points for breathing, with at least one episode of breathing over a 30 second duration during a 30 minute observation, 2/2 points for movements, with 3 or more discrete body or limb movements, 2/2 points for tone, with one or more episodes of extremity extension with return to flexion, or opening and closing of hand, and 2/2 points for amniotic fluid, with at least 1 pocket of amniotic fluid that measures 2 cm in 2 perpendicular planes. IMPRESSION: BPP score of 8/8 for both twins. Commentary: Commentary NST reactive x 2 Condition on Discharge: Stable Disposition: Home Discharge Instructions: Diet: Consistent carbohydrate Activity: No Restrictions, As Tolerated Medications: NA Follow Up Care: Discharge Statement: "Patient was advised to return to the ER or call 911 if any headaches, dizziness, shortness of breath, chest pain, abdominal pain, bleeding, fevers, or worsening of medical condition. Patient was counseled about treatment plan, medications, possible side effects, patientverbalized understanding. All questions were answered to the best of my ability. This discharge took greater then 30 minutes in planning, reviewing documentation, counseling the patient, and discussing with other team members." Visit Coding OBGYN Date of Service: Mar 06, 2025 Billing Provider: LENKA EUCEDA DO CAR USHER Common Visit Codes: 89999-XXF/OBS SAME DATE (HIGH) CAR USHER Procedure Codes: 84912-82- NON-STRESS TEST LENKA EUCEDA DO Mar 06, 2025 15:56
== END 2025-03-06 14:17 | disposition home or self-care (01) ==
LOC: LDRP 10:44
PROVIDERS: ADMIT Obstetrics & Gynecology; ATTEND Obstetrics & Gynecology
DX: O30.003 Twin pregnancy, unspecified number of placenta and unspecified number of amniotic sacs, third trimester (principal); O24.419 Gestational diabetes mellitus in pregnancy, unspecified control; Z3A.36 36 weeks gestation of pregnancy; Z98.890 Other specified postprocedural states
CPT/HCPCS: 76818; 81002; 82948; 82962; G0378; 59025; 76819

== ENCOUNTER 2025-03-08 10:20 | Inpatient (IN) | payer BC ==
[~2025-03-08] VITALS: Ht 170.2 cm; Wt 124.7 kg
[2025-03-08 11:12] LABS: Hematocrit 29.3 % (36.0-46.0); Hemoglobin 9.3 g/dL (12.2-16.2); Mean Corpuscular Hemoglobin 21.5 pg (28.0-32.0); Mean Corpuscular Volume 68.2 fL (80.0-100.0); Nucleated Red Blood Cells % 0.1 %
[2025-03-08 11:20] LABS: Albumin 3.5 g/dL (3.2-4.8); Anion Gap 9 (5-15); Bilirubin, Total 0.3 mg/dL (0.2-1.0); Calcium 8.8 mg/dL (8.7-10.4); Carbon Dioxide 22 mmol/L (20-31); Chloride 106 mmol/L (98-107); Glucose 103 mg/dL (74-106); Potassium 3.6 mmol/L (3.5-5.1); Sodium 137 mmol/L (136-145); Total Protein 6.7 g/dL (5.7-8.2)
[2025-03-08 11:22] LABS: Alanine Aminotransferase < 9 U/L (7-40); Alkaline Phosphatase 175 U/L (46-116); BUN/Creatinine Ratio 6.9 (10.0-20.0); Blood Urea Nitrogen < 5 mg/dL (9-23)
--- NOTE | 2025-03-08 11:22 | DVHHP2 ---
OB CC & HPI Date Date of Admission: Mar 08, 2025 Patient Identification: : 1 Para: 0 EDC: Mar 29, 2025 EGA: 37wks Chief Complaints: Reason for admission: other (twins ) Indication for : malpresentation Admission Nurse Assessment Rev: No History of Present Complaints pt is admitted for pcs due to twins and malpresentation,she has gdma2 and hx of ptl.pt has been noncompliant with gdm Past Medical History Cardiac: No pertinent Hx Pulmonary: No pertinent Hx Central Nervous System: No pertinent Hx GI: No pertinent Hx Hemotology/Oncology: No pertinent Hx Hepatobiliary: No pertinent Hx Psychiatric: No pertinent Hx Musculoskeletal: No pertinent Hx Rheumotologic: No pertinent Hx Infectious Disease: No peritnent Hx ENT: No pertinent Hx Renal/: No pertinent Hx Endocrine: No pertinent Hx Dermatology: No pertinent Hx Past Surgical History: No pertinent Hx OB History OB History Care: Good Care Ultrasounds: Normal mid trimester US Obstetrical Complications: Gestational Diabetes Medical Complications: None Allergies: Coded Allergies: NO KNOWN ALLERGIES (Unverified , 08/29/24) Home Meds Active Scripts Hydrocortisone (Rectal) (Hydrocortisone) 1 % Cre, 1 % GA BID for 5 Days, #1 CRE Prov:WILLY FIGUEROA PAC 01/18/24 Reported Medications Vit W/ Ferrous Fumara ( One Daily) Daily Tab, 1 TAB PO DAILY, #90 TAB 3 Refills 01/11/25 Current Medications Current Medications Medications (Trade) Dose Ordered Sig/Adela Route PRN Reason Start Time Stop Time Status Last Admin Lactated Ringer's 1,000 ml @ 125 mls/hr Q8H IV 03/08/25 10:30 Family & Social History Family/Social History Blood Type: Unknown Rubella: unknown RPR/VDRL: Negative GBS Status: Unknown HBsAG: Negative Review of Systems Constitutional: No symptom reported Ears, Nose, & Throat: No symptom reported Eyes: No symptom reported Pulmonary/Respiratory: No symptom reported Cardiovascular: No symptom reported Gastrointestinal: No symptom reported Genitourinary: No symptom reported Musculoskeletal: No symptom reported Skin: No symptom reported Psychiatric: No symptom reported Endocrine: No symptom reported Hemotologic/Lymphatic: No symptom reported OB Admission Exam Physical Exam HEENT: TMs Normal, Fontanelles Normal, Nasal Mucosa Normal, Eyes non-injected, Oropharynx Normal, PERRLA, Moist Membranes, EOMI Heart: Rhythm Normal Lungs: Clear Abdomen: Non tender Extremities: Normal Reflexes: Normal Cervical Dilatation: 1cm Effacement: 25% Station: -2 Membranes: Intact Heart Rate: 130's Accelerations: Accelerations Present Decelerations: No Decelerations Short Term Variability: Present Anesthesia Director Variability: Average (6-25) Contractions on Admission: >10 Minutes Apart Intensity: Moderate OB Plan Plan Admitting Diagnosis: Primary C- Section for twins malpresengtation gdma2 non compliant morbid obesity Plan: Section Other Plan: informed consent obtained Visit Coding OBGYN Date of Service: Mar 08, 2025 Billing Provider: BRIANA COBURN DO CONTRACTS INTERN Common Visit Codes: [id number] OBS CARE (HIGH) CONTRACTS INTERN Procedure Codes: 42545-56- NON-STRESS TEST BRIANA COBURN DO Mar 08, 2025 11:22
[2025-03-08 11:28] LABS: INR 0.92 (0.9-1.15); Partial Thromboplastin Time 29.0 SEC (24.5-34.5); Prothrombin Time 9.8 sec (9.3-11.8)
[2025-03-08] MEDS: LACTATED RINGER'S 1,000 ML IV ONE (13:04)
[2025-03-08] MEDS: ceFAZolin 2 GM/D5W50ml 50 ML IV ONE (14:54)
[2025-03-08] MEDS ORDERED: MORPHINE SULF PF 5 MG/10 ML VIAL ONE (14:55)
[2025-03-08] MEDS ORDERED: fentaNYL CITRATE 100 MCG/2 ML VL ONE (14:55)
[2025-03-08] MEDS ORDERED: GLYCOPYRROLATE 0.2 MG/ML 1ML VIAL ONE (14:56)
[2025-03-08] MEDS ORDERED: KETOROLAC TROMETH 30 MG/ML 1ML VIAL ONE (14:56)
[2025-03-08] MEDS ORDERED: ONDANSETRON HCL 4 MG/2 ML VIAL ONE (14:56)
[2025-03-08] MEDS ORDERED: BUPIVACAINE/DEXTROSE MPF 0.75% 2 ML AMP IT ONE (14:56)
[2025-03-08] MEDS ORDERED: HYDR-4072 PO (15:13)
[2025-03-08] MEDS ORDERED: DOCU-94 PO (15:13)
[2025-03-08] MEDS ORDERED: IBUP-1456 PO (15:13)
[2025-03-08] MEDS: LACT. RINGERS/OXYTOCIN 20UNITS 1,000 ML IV ONE (15:15)
[2025-03-08] MEDS ORDERED: GUM (CHEWING) 1 GUM CHEW CHEW ONE (15:15)
--- NOTE | 2025-03-08 16:18 | DVHOP2 ---
Operative Report DATE OF OPERATION: 03/08/25 PREOPERATIVE DIAGNOSES: iup at 37wks with twins malpresentation,gdma2 uncontrolled,morbid obesity POSTOPERATIVE DIAGNOSES: same SURGEON: Lesly Cleveland D.O./trish ANESTHESIOLOGIST: tamera TYPE OF ANESTHESIA : general CONSENT: The patient was informed of the risks and benefits of the procedure. The patient was informed of the risks and benefits of the procedure. These include but are not limited to , complications of anesthesia, postoperative infection, incomplete relief of symptoms, recurrence of symptoms, damage to blood vessels, nerves and tendons, deep venous thrombosis, pulmonary embolism and possible need for repeat surgery in the future. FINDINGS: Baby [a and b -vx and breech ] with Apgars of [6-7 and 9-9 ] . Grossly normal appearing tubes and ovaries. PROCEDURES: Primary low transverse section. PROCEDURE IN DETAIL: The patient was taken to the operating room. She already had an epidural in place. She was then placed in supine position with a leftward tilt. A Pfannenstiel skin incision was made 2 cm above the symphysis pubis. This incision was carried to the underlying layer of fascia. The fascia was nicked in the midline. The incision was extended laterally. The superior aspect of the fascial incision was grasped and elevated. The same procedure was done to the inferior aspect of the fascial incision. The rectus muscles were then in the midline. Peritoneum was identified and entered. Peritoneal incision was extended superiorly and inferiorly with good visualization of the bladder. Bladder blade was inserted. Vesicouterine peritoneum was identified and entered. Lower uterine segment was incised in a transverse fashion. The infanta was delivered from vertex presentation.and infant b from breech presentation Infant was baby [a and b vx and breech ] with Apgars [6-7] and [8-9]. Placenta was then removed manually. Uterus was exteriorized and cleared of all clots and debris. The incision was repaired using 0 Vicryl in a double-layered fashion. No bleeding was noted. Uterus was then returned to the abdomen. The gutters were cleared off all clots and debris. Peritoneum was closed using 0 Vicryl, fascia was closed using 0 Maxon, and skin was closed using jo-ann. The patient tolerated the procedure well. She was taken to the recovery room in stable condition. ESTIMATED BLOOD LOSS: Estimated blood loss was noted to be 800 mL. Visit Coding OBGYN Date of Service: Mar 08, 2025 Billing Provider: LESLY CLEVELAND DO TELEVISION REPAIRER Common Visit Codes: 63379-FKPNSHX INP/OBS CARE (HIGH) TELEVISION REPAIRER Procedure Codes: 37007-U-SHCGWRT DELIVERY ONLY LESLY CLEVELAND DO Mar 08, 2025 16:18
--- NOTE | 2025-03-08 16:21 | POSTOP ---
Post-Operative Note Post-Operative Note Preop Diagnosis iup at 37wks with twins malpresentation ,gdm a2 uncontrolled,morbid obesity Postop Diagnosis: same Operation performed pltcs Specimen baby a and b both girls vx and breech ,apgars 6-7 and 8-9 Anesthesia: General Anesthesiologist: tamera Blood Loss(fluid mgmt) 800ml Surgeon Briana Cleveland Heavy Mobile Equipment Repairer trish Implant na Complications & Mgmt none Date 03/08/25 Time 16:18 Visit Coding OBGYN Date of Service: Mar 08, 2025 Billing Provider: BRIANA CLEVELAND DO INFRASTRUCTURE DIRECTOR Common Visit Codes: [id number]-[id number] INP/OBS CARE (HIGH) INFRASTRUCTURE DIRECTOR Procedure Codes: 71470-E-ADTALPZ DELIVERY ONLY BRIANA CLEVELAND DO Mar 08, 2025 16:21
[2025-03-08 16:50] VITALS: PULSE 92; RESP 20; O2SAT 99
[2025-03-08] MEDS ORDERED: HYDROmorphone HCL 2 MG/ML VL/or syr ONE (16:52)
[2025-03-08] MEDS ORDERED: MIDAZOLAM HCL 2MG/2ML 2ml VIAL (1mg/ml) ONE (17:00)
[2025-03-08] MEDS ORDERED: KETAMINE 50mg/ML 1ml syringe ONE (17:00)
[2025-03-08] MEDS: ACETAMINOPHEN IV 1000 MG/100ML (10MG/ML) IV ONE (17:00)
[2025-03-08] MEDS ORDERED: HYDROmorphone HCL 2 MG/ML VL/or syr IV PRN ×2 (17:15→22:45)
[2025-03-08] MEDS ORDERED: ONDANSETRON HCL 4 MG/2 ML VIAL IV PRN (17:15)
[2025-03-08] MEDS ORDERED: SUGAMMADEX 200mg/2ml Vial (100MG/ML) IV ONE (17:22)
[2025-03-08] MEDS ORDERED: DIPHENOXYLATE W/ATROPINE 2.5 MG TAB ONE (17:23)
[2025-03-08 17:25] VITALS: PULSE 83; RESP 22; O2SAT 96
[2025-03-08] MEDS ORDERED: MEPERIDINE HCL (25 MG/ML) 1ML VIAL ONE (17:30)
[2025-03-08] MEDS: CARBOPROST TROMETHAMINE 250 MCG/1ML VIAL IM ONE (17:53)
[2025-03-08] MEDS: ACETAMINOPHEN IV 100 ML IV ONE (17:54)
[2025-03-08] MEDS: DIPHENOXYLATE W/ATROPINE 2.5 MG TAB PO PRN (17:58)
[2025-03-08 18:00] VITALS: PULSE 85; RESP 17; O2SAT 97
[2025-03-08 18:12] VITALS: BP 138/90; PULSE 78; RESP 16; TEMP 97.8; O2SAT 97
[2025-03-08 18:30] VITALS: RESP 16; O2SAT 96
[2025-03-08] MEDS: LACTATED RINGER'S 1,000 ML IV SCH (18:30)
[2025-03-08] MEDS: ONDANSETRON HCL 4 MG/2 ML VIAL IV PRN (18:41)
[2025-03-08 22:03] LABS: Hematocrit 30.0 % (36.0-46.0); Hemoglobin 9.1 g/dL (12.2-16.2); Mean Corpuscular Hemoglobin 21.5 pg (28.0-32.0); Mean Corpuscular Volume 70.7 fL (80.0-100.0); Nucleated Red Blood Cells % 0.1 %
[2025-03-08] MEDS ORDERED: KETOROLAC TROMETH 30 MG/ML 1ML VIAL IV PRN (22:45)
[2025-03-08] MEDS ORDERED: MORPHINE SULFATE INJ 2 MG/ml SYRG IV PRN (22:45)
[2025-03-08 22:54] VITALS: BP 126/82; PULSE 80; RESP 16; TEMP 98.1; O2SAT 98
[2025-03-09] MEDS ORDERED: NALOXONE HCL 0.4 MG/ML VIAL IV ONE (01:00)
[2025-03-09] MEDS: ceFAZolin 1GM/50ML 50 ML IV SCH (01:27)
[2025-03-09] MEDS: ACETAMINOPHEN IV 1000 MG/100ML (10MG/ML) IV PRN (02:12)
[2025-03-09 03:30] VITALS: BP 104/58; PULSE 80; RESP 16; TEMP 98.6; O2SAT 95
--- NOTE | 2025-03-09 04:17 | DVHPN2 ---
Chief Complaints Patient reports: No new complaints (Coping well. States pain is adequately controlled. one baby with patient, the other was transferred. Breast feeds well. Denies blues.) Nursing reports: No new complaints Objective Vitals Vital Signs Date Time Temp Pulse Resp B/P (MAP) Pulse Ox O2 Delivery O2 Flow Rate FiO2 03/08/25 22:54 98.1 80 16 126/82 (97) 98 98.1 03/08/25 18:30 Nasal Cannula 2.0 03/08/25 18:00 97 Medications Current Medications Medications (Trade) Dose Ordered Sig/Adela Route PRN Reason Start Time Stop Time Status Last Admin Acetaminophen (Ofirmev) 1,000 mg Q8H PRN IV PAIN SCALE 4-6 OR TEMP>100.4 03/09/25 01:00 03/09/25 02:12 Cefazolin Sodium 50 ml @ 100 mls/hr Q8H IV 03/08/25 15:15 03/09/25 07:44 03/09/25 01:27 Diphenoxylate HCl/ Atropine (Lomotil Tablet) 5 mg Q4HP PRN PO DIARRHEA 03/08/25 16:30 03/08/25 17:58 Hydromorphone HCl (Dilaudid Injection) 1 mg Q2HPRN PRN IV MODERATE PAIN (4-6 PAIN SCALE) 03/08/25 22:45 Ketorolac Tromethamine (Toradol Injection) 15 mg Q6HPRN PRN IV MILD PAIN (1-3 PAIN SCALE) 03/08/25 22:45 03/13/25 22:44 Lactated Ringer's 1,000 ml @ 125 mls/hr Q8H IV 03/08/25 10:30 03/08/25 18:30 Morphine Sulfate 2 mg Q4HPRN PRN IV SEVERE PAIN (7-10 PAIN SCALE) 03/08/25 22:45 Ondansetron HCl (Zofran) 4 mg Q4HP PRN IV NAUSEA / VOMITING 03/08/25 15:15 03/08/25 18:41 General: Normal Lungs: Normal, Normal breath sounds, Lungs clear Cardiovascular: Normal, Regular rate and rhythm Abdominal: Normal (Incision clean, dry, and intact. BS+ x 4) Skin: Normal Others Breasts soft, nipples intact Lochia minimal, no odor Studies Laboratory Tests 03/08/25 21:39 03/08/25 10:44 Test 03/08/25 10:44 Range/Units Serum Glucose 103 74-106 mg/dL Ass/Plan Assessment 1st Post OP/PP day Plan Continue PP/Post OP management LYIRC FOWLER CNM Mar 09, 2025 04:17
[2025-03-09 07:00] VITALS: BP 114/62; PULSE 82; RESP 20; TEMP 97.6; O2SAT 94
[2025-03-09 08:47] LABS: Nucleated Red Blood Cells % 0.0 %
[2025-03-09 08:49] LABS: Hematocrit 27.3 % (36.0-46.0); Hemoglobin 8.5 g/dL (12.2-16.2); Mean Corpuscular Hemoglobin 21.1 pg (28.0-32.0); Mean Corpuscular Volume 67.9 fL (80.0-100.0)
[2025-03-09 11:00] VITALS: BP 98/57; PULSE 79; RESP 20; TEMP 97.8; O2SAT 93
[2025-03-09 15:00] VITALS: BP 122/57; PULSE 83; RESP 20; TEMP 97.7; O2SAT 97
[2025-03-09] MEDS ORDERED: HYDROcodone-ACET 5/325MG TAB PO PRN ×2 (17:00)
[2025-03-09] MEDS: SIMETHICONE 80 MG CHEWABLE TABLET PO SCH (18:45)
[2025-03-09] MEDS: IBUPROFEN 800 MG TAB PO PRN (18:45)
[2025-03-09 19:00] VITALS: BP 126/70; PULSE 85; RESP 18; TEMP 97.9; O2SAT 98
[2025-03-09] MEDS: DOCUSATE SOD 100 MG CAP PO SCH (22:08)
[2025-03-09 23:00] VITALS: BP 138/76; PULSE 91; RESP 18; TEMP 98; O2SAT 97
[2025-03-10 03:18] VITALS: BP 134/70; PULSE 82; RESP 18; TEMP 97.9; O2SAT 98
--- NOTE | 2025-03-10 06:38 | DVHPN2 ---
Progress Note Date Seen: Mar 10, 2025 Subjective Teofilo is resting in bed with baby in bassinet at bedside getting labwork drawn. Patient got rest last night and feels like all her questions were answered well by the nurses. She is excited to be able to go see her other baby in [place] SUBJECTIVE: -Lochia minimal -Regular diet well tolerated. -Ambulating and voiding well w/o feeling dizzy or lightheaded -Pain relieved with oral medication PRN -Passing flatus but no BM yet. -Combination feeding w/o problem -Desires and requests to be discharged home today (03/10) vital signs Vital Sign Date Time Temp Pulse Resp B/P (MAP) Pulse Ox O2 Delivery O2 Flow Rate FiO2 03/10/25 04:37 97.9 03/10/25 03:18 82 18 134/70 (91) 98 03/09/25 19:00 Room Air 03/09/25 07:00 0.0 03/08/25 18:00 97 Total Intake and Output 03/09/25 03/09/25 03/10/25 15:00 23:00 07:00 Output Total 800 ml 750 ml Balance -800 ml -750 ml medications Current Medications Medications Dose Ordered Sig/Adela Route Start Time Stop Time Status Last Admin Dose Admin Lactated Ringer's 1,000 ml @ 125 mls/hr Q8H IV 03/08/25 10:30 03/08/25 18:30 125 MLS/HR Ondansetron HCl 4 mg Q4HP PRN IV 03/08/25 15:15 03/08/25 18:41 4 MG Diphenoxylate HCl/ Atropine 5 mg Q4HP PRN PO 03/08/25 16:30 03/08/25 17:58 5 MG Hydromorphone HCl 1 mg Q2HPRN PRN IV 03/08/25 22:45 Acetaminophen 1,000 mg Q8H PRN IV 03/09/25 01:00 03/09/25 10:09 1,000 MG Morphine Sulfate 2 mg Q4HPRN PRN IV 03/08/25 22:45 Ketorolac Tromethamine 15 mg Q6HPRN PRN IV 03/08/25 22:45 03/13/25 22:44 Docusate Sodium 100 mg Q12HR PO 03/09/25 22:00 03/09/25 22:08 100 MG Dimethicone 80 mg QID PO 03/09/25 18:00 03/09/25 22:08 80 MG Ibuprofen 800 mg Q8HP PRN PO 03/09/25 17:00 03/10/25 04:37 800 MG Acetaminophen/ Hydrocodone Bitart 1 tab Q4HPRN PRN PO 03/09/25 17:00 Acetaminophen/ Hydrocodone Bitart 2 tab Q4HPRN PRN PO 03/09/25 17:00 laboratory and microbiology Laboratory Tests 03/09/25 07:58 03/08/25 10:44 Test 03/08/25 10:44 Range/Units Serum Glucose 103 74-106 mg/dL Objective OBJECTIVE: -A&O x4. No apparent distress. Affect appropriate -Afebrile, VSS -Chest: heart and lung sounds normal. -Breasts: Nipples intact w/o cracks or soreness -Abdomen: normal BS, soft, non-tender, no rebound or guarding, fundus firm @ U- 1, -Lower abdominal incision site with dressing dry and intact. No edema, erythema or induration -Extremities: no edema or tenderness Problems(with codes): (1) Status post delivery (2) Twin delivered by section in hospital Assessment/Plan ASSESSMENT 24 yo now () Post operative & ppd # 2 s/p Primary Section for twin gestation and malpresentation, doing well. Blood Type: A+ Combo feeding Rubella Immune PLAN -Continue pain management with oral medications as previously ordered -Increase fluid intake and fiber in diet to promote regular bowel movements, Laxative PRN -Educated patient on self-care and warning signs to watch for, including PPH, PPD, infection, and pre-eclampsia -Continue routine care and anticipate discharge today Plan discussed with: Patient Visit Coding OBGYN Date of Service: Mar 10, 2025 Billing Provider: MARY PETIT CNM TRUST OPERATIONS ASSISTANT Common Visit Codes: [id number] INP/OBS CARE(MOD) MARY PETIT CNM Mar 10, 2025 06:38
--- NOTE | 2025-03-10 06:40 | DVHDS2 ---
Obstetrics Discharge Summary Obstetrics Discharge Summary Date of Admission: Mar 08, 2025 Date of Discharge: Mar 10, 2025 Reason For Admission: Section (Primary for twin gestation) Intrapartum Procedures: (Low Cervical Transverse) Discharge Diagnosis: Term -Delivered Discharge Information: Activity (Unrestricted. Advance as tolerated. Balance activities with rest periods. No heavy lifting, pushing or straining. Pelvic rest x 6 weeks), Diet (Routine regular diet rich in fiber, protein, iron and vitamin C with adequate fluid intake.), Medications (See med list), Instructions (Routine), Discharge to (Home), Accompanied by (partner), Discarge date (03/10/25) Discharge Care Plan Instructions - self care instructions given - emergency signs and symptoms including but not limited to pre-eclampsia precautions and signs of infection, PPH & of PPD reviewed with patient. -Follow up with OB Provider in 1 week for incision check Visit Coding OBGYN Date of Service: Mar 10, 2025 Billing Provider: MARY PETIT CNM REPAIR SUPERVISOR Common Visit Codes: 84650-FZT/OBS DISCH DAY <30MIN MARY PETIT CNM Mar 10, 2025 06:40
--- NOTE | 2025-03-10 06:43 | DVHDS2 ---
ASSESSMENT ASSESSMENT Hospital Course 24 yo admitted at 37w0d for primary section for twin gestation. complicated by uncontrolled GDMA2. Unable to do spinal anesthesia in OR, so general anesthesia was used. See periop notes for details. Baby B transferred to [place] and baby A with patient. course uncomplicated. Assessment Primary c/s Twin gestation Rubella Immune Uncontrolled GDMA2 in Problems: (1) Status post delivery (2) Twin delivered by section in [place] [facility] MARY PETIT [facility] Mar 10, 2025 06:43
[2025-03-10 11:00] VITALS: BP 129/85; PULSE 88; RESP 20; TEMP 97.8; O2SAT 97
== END 2025-03-10 14:16 | disposition home or self-care (01) | DRG 788 ==
LOC: LDRP 10:20
PROVIDERS: ADMIT Obstetrics & Gynecology; ATTEND Obstetrics & Gynecology
PROC: 10D00Z1 Extraction of Products of Conception, Low, Open Approach (ICD-10-PCS; principal; 2025-03-08 15:03)
DX: O30.003 Twin pregnancy, unspecified number of placenta and unspecified number of amniotic sacs, third trimester (principal); Z37.2 Twins, both liveborn; O24.424 Gestational diabetes mellitus in childbirth, insulin controlled; O99.214 Obesity complicating childbirth; O32.1XX2 Maternal care for breech presentation, fetus 2; E66.01 Morbid (severe) obesity due to excess calories; Z3A.37 37 weeks gestation of pregnancy; Z91.199 Patient's noncompliance with other medical treatment and regimen due to unspecified reason
CPT/HCPCS: 36415; 59025; 80053; 81002; 82962; 85025; 85610; 85730; 86780; 86803; 86850; 86900; 86901; 94760; 94762; 96360; 96361; 96365; 96366; G0378; J0131; J1100; J1885; J2250; J2405; J2590

== ENCOUNTER 2025-03-12 21:21 | Emergency (ER) | payer BC ==
[~2025-03-12] VITALS: Ht 175.3 cm; Wt 120.8 kg
[~2025-03-12 21:21] MED LIST changes: +DOCU-94 PO; +HYDR-4072 PO; +IBUP-1456 PO
[2025-03-12 23:16] LABS: Hematocrit 28.5 % (36.0-46.0); Hemoglobin 8.9 g/dL (12.2-16.2); Nucleated Red Blood Cells % 0.3 %
[2025-03-12 23:17] LABS: Mean Corpuscular Hemoglobin 21.7 pg (28.0-32.0); Mean Corpuscular Volume 69.6 fL (80.0-100.0)
[2025-03-12 23:32] LABS: Alanine Aminotransferase 17 U/L (7-40); Albumin 3.5 g/dL (3.2-4.8); Anion Gap 14 (5-15); BUN/Creatinine Ratio 13.0 (10.0-20.0); Bilirubin, Total 0.3 mg/dL (0.2-1.0); Blood Urea Nitrogen 10 mg/dL (9-23); Calcium 9.1 mg/dL (8.7-10.4); Carbon Dioxide 28 mmol/L (20-31); Chloride 99 mmol/L (98-107); Glucose 88 mg/dL (74-106); Potassium 3.9 mmol/L (3.5-5.1); Sodium 141 mmol/L (136-145); Total Protein 6.7 g/dL (5.7-8.2)
--- NOTE | 2025-03-12 23:38 | DVH ---
Bilateral lower extremity venous duplex Clinical History: swelling Comparison: None Technique: Duplex Doppler evaluation of the deep venous systems of both lower extremities from the common femoral veins to the popliteal veins including color Doppler and spectral/pulsed waveform analysis was performed. Findings: RIGHT SIDE: The common femoral vein demonstrates appropriate compressibility and waveform variability. There is compressibility/patency of the great saphenous vein at the proximal thigh. The femoral vein demonstrates appropriate compressibility and waveform variability. The deep femoral vein demonstrates appropriate compressibility and waveform variability. The popliteal vein demonstrates appropriate compressibility and waveform variability. There is normal compressibility at the tibioperoneal trunk. LEFT SIDE: The common femoral vein demonstrates appropriate compressibility and waveform variability. There is compressibility/patency of the great saphenous vein at the proximal thigh. The femoral vein demonstrates appropriate compressibility and waveform variability. The deep femoral vein demonstrates appropriate compressibility and waveform variability. The popliteal vein demonstrates appropriate compressibility and waveform variability. There is normal compressibility at the tibioperoneal trunk. Impression: No right or left femoropopliteal venous thrombosis.
[2025-03-13 00:20] LABS: Alkaline Phosphatase 126 U/L (46-116)
--- NOTE | 2025-03-13 01:54 | ED.PDOC ---
Musculoskeletal HPI Comments HPI: 24-year-old female came to ER for bilateral lower extremity swelling. Patient delivered a twin 4 days ago via , elevated procedure well. Shortly afterwards noted swelling and soreness on both lower extremities. Denies any chest pains or shortness of breath Past Medical History: Denies Surgical History: Family History: Denies Personal and Social History: Denies HPI: Poor Historian. Past Medical History: Past Surgical History: REVIEW OF SYSTEMS: CONSTITUTIONAL: Denies acute: fever, diaphoresis, chills, generalized weakness. HEAD: Denies acute: headache, photophobia Eyes: Denies acute: Double vision, vision loss, eye pain, eye discharge. EARS: Denies acute: tinnitus, hearing loss, ear discharge, ear pain, THROAT: Denies acute: sore throat, swelling, difficulty swallowing , pain with swallowing, change in voice. NECK: Denies acute: neck pain, neck swelling, stiff neck. HEART: Denies acute : chest pain, palpitations, LUNGS: Denies acute: SOB, wheezing, cough, hemoptysis ABDOMEN: Denies acute: abdominal pain, Nausea, Vomiting, diarrhea, melena , hematemesis, hematochezia SKIN: Denies acute: rash, redness, lesions, itchiness. EXTREMITIES: Denies acute: calf pain, numbness, tingling, weakness, denies pain in extremity. Denies acute: Low back pain. Neuro: Denies acute: focal neurological deficit, motor or sensory focal neurological deficit, tremors, seizure like activity, confusion, dizziness, change in mental status, loss of bowel or bladder function, cauda equina like symptoms. : Denies acute: dysuria, hematuria, flank pain, increase in urinary frequency. PSYCH: Denies acute: hallucination, suicidal ideation, homicidal ideation. FEMALE: Denies acute: abnormal vaginal bleeding, foul odor, unusual discharge. PHYSICAL EXAM: General: ---no-----acute distress, awake and alert. Head: normocephalic, atraumatic. No raccoon's eyes, no garza sign. Neck: supple, trachea is midline, no swelling. Throat: Normal phonation. Eyes:, no erythema, no purulent discharge, no proptosis, no icterus. Heart: regular rate, regular rhythm, no significant murmur appreciated. Lungs: no apparent respiratory distress, Able to speak in full sentences. No wheezing, no rhonchi, no crackles. No stridors Clear to auscultation bilaterally. Abdomen: non tender to palpation, non distended, soft, no guarding, no rebound, + bowel sounds. Obese Neuro: Awake, Alert, oriented to name, self, situation, follows commands GCS=15. Speech is normal. Skin: no petechia, no purpura, no cyanosis, non-pale, not jaundice. Lower extremities: --2/4 b/l - Pitting edema no deformity, no focal swelling, no calf TTP. Makes eye contact. moves all four extremities. Face: no apparent facial droop. Ambulating in the ED independently. No nuchal rigidity, Kernig's sign, Brudzinski's sign, no meningeal signs. ED COURSE: DISCLAIMER: This medical document was created using an electronic medical record system with voice recognition software and computerized dictation system. Although this document has been carefully reviewed, there might still be some phonetic and typographical errors. Occasional wrong-word or "sound-alike" substitutions may have occurred due to the inherent limitations of voice recognition software. These areas are purely typographical due to imperfections of the software programs and do not reflect any compromise in the patient's medical care. Please read the chart carefully and recognize, using context, where these substitutions have occurred. Chief Complaint: Lower Extremity Time Seen by MD: 01:53 Primary Care Provider: IRISH Reviewed Notes: Nurses Notes, Allergies Allergies: Coded Allergies: NO KNOWN ALLERGIES (Unverified , 08/29/24) Home Meds Active Scripts Ibuprofen (Ibuprofen) 800 Mg Tab, 800 MG PO TID PRN for 5 Days, #20 TAB Prov:BRIANA COBURN DO 03/08/25 Hydrocodone-Acetaminophen (Hydrocodone/Acetaminophen 10-325 mg) 1 Tab Tab, 1 TAB PO Q6HPRN PRN for 7 Days, #28 TAB Prov:BRIANA COBURN DO 03/08/25 Docusate Sodium (Colace) 100 Mg Cap, 1 CAP PO BID, #60 CAP 2 Refills Prov:BRIANA COBURN DO 03/08/25 Hydrocortisone (Rectal) (Hydrocortisone) 1 % Cre, 1 % ID BID for 5 Days, #1 CRE Prov:WILLY FIGUEROA PAC 01/18/24 Reported Medications Vit W/ Ferrous Fumara ( One Daily) Daily Tab, 1 TAB PO DAILY, #90 TAB 3 Refills 01/11/25 Information Source: Patient Mode of Arrival: Ambulatory Location: Bilateral Past Medical History PAST MEDICAL HISTORY: Denies Surgical History: Denies all surgeries CLINICAL TECHNOLOGIST History: No Pertinent CLINICAL TECHNOLOGIST History Family History Family History: Reviewed,noncontributory to illness Social History Smoker: Non-Smoker Alcohol: Denies ETOH Use Drugs: Denies Drug Use Lives In: Home Was a procedure done? Was a procedure done?: No X-Ray, Labs, Meds, VS Vital Signs Date Time Temp Pulse Resp B/P (MAP) Pulse Ox O2 Delivery O2 Flow Rate FiO2 03/12/25 21:22 97.9 80 18 140/87 97 97.9 Lab Test 03/12/25 22:49 Range/Units White Blood Count 8.7 # 4.4-10.8 10^3/uL Red Blood Count 4.10 4.0-5.20 10^6/uL Hemoglobin 8.9 L 12.2-16.2 g/dL Hematocrit 28.5 L 36.0-46.0 % Mean Corpuscular Volume 69.6 L 80.0-100.0 fL Mean Corpuscular Hemoglobin 21.7 L 28.0-32.0 pg Mean Corpuscular Hemoglobin Concent 31.1 L 32.0-36.0 g/dL Red Cell Distribution Width 18.8 H 11.8-14.3 % Platelet Count 424 140-450 10^3/uL Mean Platelet Volume 7.2 6.9-10.8 fL Neutrophils (%) (Auto) 66.9 37.0-80.0 % Lymphocytes (%) (Auto) 24.1 10.0-50.0 % Monocytes (%) (Auto) 6.2 0.0-12.0 % Eosinophils (%) (Auto) 2.4 0.0-7.0 % Basophils (%) (Auto) 0.4 0.0-2.0 % Neutrophils # (Auto) 5.8 1.6-8.6 10 ^3/uL Lymphocytes # (Auto) 2.1 0.4-5.4 10 ^3/uL Monocytes # (Auto) 0.5 0-1.3 10 ^3/uL Eosinophils # (Auto) 0.2 0-0.8 10 ^3/uL Basophils # (Auto) 0 0-0.2 10 ^3/uL Nucleated Red Blood Cells 0.3 % Sodium Level 141 136-145 mmol/L Potassium Level 3.9 3.5-5.1 mmol/L Chloride Level 99 98-107 mmol/L Carbon Dioxide Level 28 20-31 mmol/L Anion Gap 14 5-15 Blood Urea Nitrogen 10 9-23 mg/dL Creatinine 0.77 0.550-1.02 mg/dL Glomerular Filtration Rate Calc 110 >90 mL/min BUN/Creatinine Ratio 13.0 10.0-20.0 Serum Glucose 88 74-106 mg/dL Calcium Level 9.1 8.7-10.4 mg/dL Total Bilirubin 0.3 0.2-1.0 mg/dL Aspartate Amino Transferase (AST) 30 13-40 U/L Alanine Aminotransferase (ALT) 17 7-40 U/L Alkaline Phosphatase 126 H 46-116 U/L C-Reactive Protein High Sensitivity 5.84 H <1.0 mg/dL B-Type Natriuretic Peptide 64.55 0-100 pg/mL Total Protein 6.7 5.7-8.2 g/dL Albumin 3.5 3.2-4.8 g/dL [place] [address] Ph: [phone] DIAGNOSTIC IMAGING Diagnostic Imaging Report : [id number] Signed PATIENT: GIANNI SALGADO ACCT: [id number] UNIT: [id number] : 2000 LOC: ER ROOM / BED: / AGE / SEX: 24 / F ADM STATUS: REG ER SERVICE 07 ORDERING PHYSICIAN: BOY WEST DO PROCEDURE(s): BLDVT - BiLat Lower DVT REASON: swelling ORDER NUMBER(s): [id number], ACCESSION NUMBER(s): [id number] Bilateral lower extremity venous duplex Clinical History: swelling Comparison: None Technique: Duplex Doppler evaluation of the deep venous systems of both lower extremities from the common femoral veins to the popliteal veins including color Doppler and spectral/pulsed waveform analysis was performed. Findings: RIGHT SIDE: The common femoral vein demonstrates appropriate compressibility and waveform variability. There is compressibility/patency of the great saphenous vein at the proximal thigh. The femoral vein demonstrates appropriate compressibility and waveform variability. The deep femoral vein demonstrates appropriate compressibility and waveform vari ability. The popliteal vein demonstrates appropriate compressibility and waveform variability. There is normal compressibility at the tibioperoneal trunk. LEFT SIDE: The common femoral vein demonstrates appropriate compressibility and waveform variability. There is compressibility/patency of the great saphenous vein at the proximal thigh. The femoral vein demonstrates appropriate compressibility and waveform variability. The deep femoral vein demonstrates appropriate compressibility and waveform obi iability. The popliteal vein demonstrates appropriate compressibility and waveform variability. There is normal compressibility at the tibioperoneal trunk. Impression: No right or left femoropopliteal venous thrombosis. ATED BY: RYAN SALGADO MD DICTATED DATE/TIME: 03/12/252335 SIGNED BY: RYAN SALGADO MD SIGNED DATE/TIME: 03/12/256 CC: Time of 1ST Reevaluation: 01:53 Reevaluation 1ST: Unchanged Patient Education/Counseling: Diagnosis, Treatment Family Education/Counseling: No Family Present Departure 1 Departure Time of Disposition: 02:06 Impression: Primary Impression: Pitting edema Additional Impression: Anemia Disposition: 01 HOME / SELF CARE / HOMELESS Condition: Stable Additional Instructions: Additional instructions: Please read all instructions provided in this packet carefully. You MUST follow-up with your primary care/family doctor in 1 to 2 days. If you are unable to see your primary care/family doctor, please return to our emergency room for re-assessment and re-evaluation in 1 to 2 days. Return to the emergency room here in our facility or to the nearest ER [facility] if your symptoms change or worsen. CONSULTATIONS: you MUST Follow-up for consultation as soon as possible with: -cardiology in 1-2 days. Please call for appointment. You MUST call the consultants office yourself to make an appointment. You may need to arrange that through your insurance and/or your primary/family doctor. If you are unable to see the campaign consultant in 1 to 2 days, you must return to our emergency room (or any other ER of your choice) for re-assessment and re- evaluation. Adequate fluid hydration. Although you have been discharged from the Emergency Department, this does not mean that you have a "clean bill of health". No definitive diagnosis for your symptoms has been made today. It is possible that you are in the process of developing a serious illness. This is why you must return to the ED without fail if any new or worsening symptoms develop. Leg elevation, salt restriction, wear compression stockings. Repeat lower extremity ultrasound in 4-5 days if symptoms persist or worsen. Below is a copy of your radiological report for follow up: [place] [address] Ph: [phone] DIAGNOSTIC IMAGING Diagnostic Imaging Report : [id number] Signed PATIENT: GIANNI SALGADO ACCT: [id number] UNIT: [id number] : 2000 LOC: ER ROOM / BED: / AGE / SEX: 24 / F ADM STATUS: REG ER SERVICE 07 ORDERING PHYSICIAN: BOY WEST DO PROCEDURE(s): BLDVT - BiLat Lower DVT REASON: swelling ORDER NUMBER(s): [id number], ACCESSION NUMBER(s): [id number] Bilateral lower extremity venous duplex Clinical History: swelling Comparison: None Technique: Duplex Doppler evaluation of the deep venous systems of both lower extremities from the common femoral veins to the popliteal veins including color Doppler and spectral/pulsed waveform analysis was performed. Findings: RIGHT SIDE: The common femoral vein demonstrates appropriate compressibility and waveform variability. There is compressibility/patency of the great saphenous vein at the proximal thigh. The femoral vein demonstrates appropriate compressibility and waveform variability. The deep femoral vein demonstrates appropriate compressibility and waveform variability. The popliteal vein demonstrates appropriate compressibility and waveform variability. There is normal compressibility at the tibioperoneal trunk. LEFT SIDE: The common femoral vein demonstrates appropriate compressibility and waveform variability. There is compressibility/patency of the great saphenous vein at the proximal thigh. The femoral vein demonstrates appropriate compressibility and waveform variability. The deep femoral vein demonstrates appropriate compressibility and waveform variability. The popliteal vein demonstrates appropriate compressibility and waveform variability. There is normal compressibility at the tibioperoneal trunk. Impression: No right or left femoropopliteal venous thrombosis. ATED BY: RYAN SALGADO MD DICTATED DATE/TIME: 03/12/252335 SIGNED BY: RYAN SALGADO MD SIGNED DATE/TIME: 03/12/252335 CC: Discharged With: Self Critical Care Note Critical Care Time?: No I personally scribed for BOY WEST DO ([email or web address]) on 03/13/25 at 01:54. Electronically submitted by Chun Joiner ([facility]). I personally scribed for BOY WEST DO ([email or web address]) on 03/13/25 at 02:09. Electronically submitted by Chun Joiner ([facility]). BOY WEST DO Mar 13, 2025 01:54
[2025-03-13 03:00] VITALS: BP 137/94; PULSE 67; RESP 20; TEMP 97.8; O2SAT 99
== END 2025-03-13 03:16 | disposition home or self-care (01) ==
LOC: ER 21:21
DX: R60.0 Localized edema (principal); D64.9 Anemia, unspecified; Z79.899 Other long term (current) drug therapy; Z98.890 Other specified postprocedural states
CPT/HCPCS: 36415; 80053; 83880; 85025; 86141; 93970